=== PATIENT | female | born 1990 | race Caucasian/White ===

== ENCOUNTER 2024-06-02 13:48 | Emergency (ER) | payer BC ==
[2024-06-02 14:52] LABS: INFLUENZA A NAA NEGATIVE (NEGATIVE); INFLUENZA B NAA NEGATIVE (NEGATIVE)
[2024-06-02 14:57] LABS: CORONAVIRUS COVID-19 NAA POSITIVE (NEGATIVE)
== END 2024-06-02 15:00 | disposition home or self-care (01) ==
LOC: DL.ED 13:48
DX: H66.91 Otitis media, unspecified, right ear (principal)
CPT/HCPCS: 0240U; 99283